=== PATIENT | male | born 1960 | race African-American/Black ===

== ENCOUNTER 2016-08-09 09:59 | Emergency (ER) | payer OTHER ==
[~2016-08-09] VITALS: Ht 170.2 cm; Wt 86.2 kg
[2016-08-09 10:09] VITALS: BP 134/74
[2016-08-09] MEDS ORDERED: CYCL10TA2 PO (11:01)
--- NOTE | 2016-08-09 11:01 | PHYS DOC ---
Past Medical History Past Medical History: No Pertinent History Past Surgical History: Tonsillectomy Alcohol Use: Occasionally Drug Use: None Adult General Chief Complaint Chief Complaint: BACK PAIN OR INJURY [facility] HPI Patient is a 56 year old male presents to the emergency department with a history of right lower back pain that started on Monday. Patient states that he was working on a transmission when he lifted something heavy. He states that he took one of his mother's oxycodone which helped with the pain tremendously. Patient states that he was able to sleep much better last night. Patient denies any numbness or tingling down to his lower extremities. He denies any loss of bowel or bladder. Review of Systems Review of Systems Constitutional: Denies fever or chills [] Eyes: Denies change in visual acuity, redness, or eye pain [] HENT: Denies nasal congestion or sore throat [] Respiratory: Denies cough or shortness of breath [] Cardiovascular: No additional information not addressed in HPI [] GI: Denies abdominal pain, nausea, vomiting, bloody stools or diarrhea [] : Denies dysuria or hematuria [] Musculoskeletal: back pain denies joint pain [] Integument: Denies rash or skin lesions [] Neurologic: Denies headache, focal weakness or sensory changes [] Endocrine: Denies polyuria or polydipsia [] Allergies Allergies Allergies Coded Allergies Type Severity Reaction Last Updated Verified No Known Drug Allergies 05/17/13 No Physical Exam Physical Exam Constitutional: Well developed, well nourished, no acute distress, non-toxic appearance. [] HENT: Normocephalic, atraumatic, bilateral external ears normal, oropharynx moist, no oral exudates, nose normal. [] Eyes: PERRLA, EOMI, conjunctiva normal, no discharge. [] Neck: Normal range of motion, no tenderness, supple, no stridor. [] Cardiovascular:Heart rate regular rhythm, no murmur [] Lungs & Thorax: Bilateral breath sounds clear to auscultation [] Skin: Warm, dry, no erythema, no rash. [] Back: No lumbar spine tenderness. Patient with tenderness noted in the right lower back area Extremities: No tenderness, no cyanosis, no clubbing, ROM intact, no edema. Peripheral pulses 2+ cap refill brisk < 2 seconds. Patient is using cane to assist with ambulation. Neurologic: Alert and oriented X 3, normal motor function, normal sensory function, no focal deficits noted. [] Psychologic: Affect normal, judgement normal, mood normal. [] Current Patient Data Vital Signs Vital Signs Date Time Temp Pulse Resp B/P (MAP) Pulse Ox O2 Delivery O2 Flow Rate FiO2 08/09/16 10:09 98.5 64 16 98 Room Air 98.5 EKG EKG [] Radiology/Procedures Radiology/Procedures [] Course & Med Decision Making Course & Med Decision Making Pertinent Labs and Imaging studies reviewed. (See chart for details) Patient will be discharged home in stable condition. He'll be provided with a prescription for Flexeril which she was instructed will cause drowsiness do not take any be alert and oriented. Recommended ibuprofen 800 mg every 8 hours with food stop taking few develop an upset stomach. Ice packs on 20 minutes off 20 minutes several times a day. Also recommended following up with the primary care physician in the next 7-10 days. Since symptoms to return back to emergency department as been provided. [] Dragon Disclaimer Dragon Disclaimer This electronic medical record was generated, in whole or in part, using a voice recognition dictation system. Departure Departure Impression: Primary Impression: Back pain Disposition: 01 HOME, SELF-CARE Condition: STABLE Referrals: NO PCP (PCP) Patient Instructions: Back Pain, Adult, [id number] Additional Instructions: Activity as tolerated Medication as prescribed Flexeril will cause drowsiness do not take if you need to be alert and oriented Tylenol or Ibuprofen for pain and discomfort Ice packs on 20 minutes and off 20 minutes several times a day Followup with your primary care provider in 7-10 days Return to emergency department as needed for signs and symptoms that become worse. Scripts Cyclobenzaprine Hcl (CYCLOBENZAPRINE HCL) 10 Mg Tablet 10 MG PO TID Y for MUSCLE SPASMS, #30 TAB Prov: ANTWAN SHRESTHA APRN 08/09/16 ANTWAN SHRESTHA APRN Aug 09, 2016 11:01
== END 2016-08-09 11:26 | disposition home or self-care (01) ==
LOC: ER 09:59
DX: M54.5 Low back pain (principal); X50.0XXA Overexertion from strenuous movement or load, initial encounter; Y93.89 Activity, other specified; Y99.8 Other external cause status; Y92.89 Other specified places as the place of occurrence of the external cause
CPT/HCPCS: 99283

== ENCOUNTER 2017-02-14 18:20 | Emergency (ER) | payer OTHER ==
[~2017-02-14] VITALS: Ht 170.2 cm; Wt 78.9 kg
[~2017-02-14 18:20] MED LIST: CYCL10TA2 PO
[2017-02-14] MEDS ORDERED: CEPH-264 PO (18:55)
--- NOTE | 2017-02-14 19:05 | PHYS DOC ---
Past Medical History Past Medical History: No Pertinent History Past Surgical History: Tonsillectomy Alcohol Use: Occasionally Drug Use: None Adult General Chief Complaint Chief Complaint: THUMB HPI HPI Patient is a 57 year old male who presents with left thumb pain. The patient was working on a car approximately 2 months ago when he smashed the thumb originally. The thumb was healing fine and the patient thought he was having no problems when a few days ago it began to develop redness and pain. He is worried that he is developing an infection at the base of the thumbnail. Review of Systems Review of Systems Constitutional: Denies fever or chills [] Respiratory: Denies cough or shortness of breath [] Cardiovascular: No additional information not addressed in HPI [] Musculoskeletal: Denies back pain or joint pain [] Integument: See history of present illness Neurologic: Denies headache, focal weakness or sensory changes [] Endocrine: Denies polyuria or polydipsia [] All other systems were reviewed and found to be within normal limits, except as documented in this note. Allergies Allergies Allergies Coded Allergies Type Severity Reaction Last Updated Verified No Known Drug Allergies 05/17/13 No Physical Exam Physical Exam Constitutional: Well developed, well nourished, no acute distress, non-toxic appearance. [] Cardiovascular:Heart rate regular rhythm, no murmur [] Lungs & Thorax: Bilateral breath sounds clear to auscultation [] Skin: There is erythema to the base of the patient's left thumb with a small amount of drainage present, the bed of the thumb nail is damaged with old blood noted under the nail Extremities: No tenderness, no cyanosis, no clubbing, ROM intact, no edema. [] Neurologic: Alert and oriented X 3, normal motor function, normal sensory function, no focal deficits noted. [] Psychologic: Affect normal, judgement normal, mood normal. [] EKG EKG [] Radiology/Procedures Radiology/Procedures [] Course & Med Decision Making Course & Med Decision Making Pertinent Labs and Imaging studies reviewed. (See chart for details) []1. Infection of nailbed You've been placed on an antibiotic. Please take all of the medication as prescribed. You may cover that with a Band-Aid we are working to keep the area clean and dry. Please follow-up with your primary care physician for further examination of this nailbed and possible removal of the nail itself if it continues to not heal. Dragon Disclaimer Dragon Disclaimer This electronic medical record was generated, in whole or in part, using a voice recognition dictation system. Departure Departure Impression: Primary Impression: Infected nailbed of finger Disposition: 01 HOME, SELF-CARE Condition: STABLE Patient Instructions: Skin Infections, Fingernail or Toenail Loss Additional Instructions: Follow-up with your primary care provider for further evaluation of this nail bed in one week. Please return to the ED sooner if worsening. Please take all medication as prescribed. Scripts Cephalexin (KEFLEX) 500 Mg Capsule 1 CAP PO BID, #20 CAP Prov: ROSEMARIE SOTELO APRN 02/14/17 ROSEMARIE SOTELO APRN Feb 14, 2017 19:05
== END 2017-02-14 19:09 | disposition home or self-care (01) ==
LOC: ER 18:20
DX: L03.012 Cellulitis of left finger (principal)
CPT/HCPCS: 99283

== ENCOUNTER 2017-10-25 09:19 | Emergency (ER) | payer OTHER ==
[~2017-10-25] VITALS: Ht 170.2 cm; Wt 83.9 kg
[~2017-10-25 09:19] MED LIST changes: +CEPH-264 PO
[2017-10-25 09:40] VITALS: BP 134/68
[2017-10-25] MEDS ORDERED: ORPH100T PO (10:07)
[2017-10-25] MEDS ORDERED: NAPR500T8 PO (10:07)
--- NOTE | 2017-10-25 10:07 | PHYS DOC ---
Past Medical History Past Medical History: No Pertinent History Past Surgical History: Other Additional Past Surgical Histo: R ANKLE SX, L ELBOW SX Alcohol Use: Occasionally Drug Use: None Adult General Chief Complaint Chief Complaint: BACK PAIN OR INJURY HPI HPI Patient is a 57 year old female who presents to the emergency room with complaints of low back pain after feeling something pull or pop in his back while working yesterday. Patient states he was pulling something out of an engine when he felt the pull or popping sensation in his low back. Currently he denies any pain at rest. He states that if he moves his pain goes up to an 8 out of 10 on the pain scale. Patient denies any loss of bowel or bladder, radiation of pain into either of his legs, weakness, numbness, or tingling. Patient denies any fall or blunt injury. Review of Systems Review of Systems Constitutional: Denies fever or chills [] GI: Denies abdominal pain : Denies loss of bowel or bladder control, dysuria or hematuria [] Musculoskeletal: Denies or joint pain or tenderness, reports low back pain after feeling a pop yesterday while working [] Neurologic: Denies headache, focal weakness, numbness, or tingling. All other systems were reviewed and found to be within normal limits, except as documented in this note. Allergies Allergies Allergies Coded Allergies Type Severity Reaction Last Updated Verified No Known Drug Allergies 05/17/13 No Physical Exam Physical Exam Constitutional: Well developed, well nourished, no acute distress, non-toxic appearance. [] HENT: Normocephalic, atraumatic, bilateral external ears normal, nose normal. [] Eyes: PERRLA, conjunctiva normal, no discharge. [] Lungs & Thorax: Respirations even and unlabored Skin: Warm, dry, no erythema, no rash. [] Back: No bony tenderness, no CVA tenderness. [] Extremities: No tenderness, no cyanosis, no clubbing, ROM intact, no edema. [] Neurologic: Alert and oriented X 3, normal motor function, normal sensory function, no focal deficits noted. [] Psychologic: Affect normal, judgement normal, mood normal. [] Current Patient Data Vital Signs Vital Signs Date Time Temp Pulse Resp B/P (MAP) Pulse Ox O2 Delivery O2 Flow Rate FiO2 10/25/17 09:28 98.7 62 20 151/77 (101) 97 Room Air 98.7 EKG EKG [] Radiology/Procedures Radiology/Procedures [] Course & Med Decision Making Course & Med Decision Making Pertinent Labs and Imaging studies reviewed. (See chart for details) Patient is a 57-year-old male who presented to the emergency room with complaints of low back pain with movement after feeling a pop yesterday at work. His vital signs are stable. There is no bony tenderness on palpation of his spine. Physical exam and patient history are concerning for a lumbar strain. Discussed x-rays with the patient advised that without any acute injury or fall x-rays are not necessary, patient agrees. Will treat patient with naproxen and orphenadrine. Patient verbalized an understanding of home care, prescriptions, follow-up, and return to ED instructions without any further questions or concerns. He relates with a steady gait. [] Dragon Disclaimer Dragon Disclaimer This electronic medical record was generated, in whole or in part, using a voice recognition dictation system. Departure Departure Impression: Primary Impression: Low back pain Additional Impression: Low back strain Disposition: 01 HOME, SELF-CARE Condition: STABLE Referrals: NO PCP (PCP) Patient Instructions: Back Pain, Adult, [id number] Additional Instructions: Fill the prescriptions and use them as directed. He may apply ice or heat to the sore areas for comfort. Off work for the next 1-2 days, activity as tolerated. Follow-up with work comp doc in the next 1-2 days. Return to the emergency room if your symptoms worsen. Scripts Orphenadrine Citrate (ORPHENADRINE CITRATE) 100 Mg Tablet.er 1 TAB PO BID PRN for PAIN for 7 Days, #14 TAB 0 Refills Prov: BREN JUNE RATINGS ANALYST 10/25/17 Naproxen (NAPROXEN) 500 Mg Tablet.dr 1 TAB PO BID for 10 Days, #20 TAB 0 Refills Prov: BREN JUNE RATINGS ANALYST 10/25/17 Problem Qualifiers Primary Impression: Low back pain Chronicity: acute Back pain laterality: unspecified Sciatica presence: without sciatica Qualified Codes: M54.5 - Low back pain Additional Impression: Low back strain Encounter type: initial encounter Qualified Codes: S39.012A - Strain of muscle, fascia and tendon of lower back, initial encounter BREN JUNE RATINGS ANALYST Oct 25, 2017 10:07
== END 2017-10-25 10:12 | disposition home or self-care (01) ==
LOC: ER 09:19
DX: S39.012A Strain of muscle, fascia and tendon of lower back, initial encounter (principal); X50.0XXA Overexertion from strenuous movement or load, initial encounter; X50.9XXA Other and unspecified overexertion or strenuous movements or postures, initial encounter; Y93.89 Activity, other specified; Y92.69 Other specified industrial and construction area as the place of occurrence of the external cause; Y99.0 Civilian activity done for income or pay
CPT/HCPCS: 99283

== ENCOUNTER 2018-10-31 19:56 | Emergency (ER) | payer OTHER ==
[~2018-10-31] VITALS: Ht 170.2 cm; Wt 83.9 kg
[~2018-10-31 19:56] MED LIST changes: +NAPR500T8 PO; +ORPH100T PO
[2018-10-31 20:06] VITALS: BP 160/96
[2018-10-31] MEDS ORDERED: CYCL10TA2 PO (21:17)
[2018-10-31] MEDS ORDERED: IBUP-1060 PO (21:17)
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
== END 2018-10-31 21:32 | disposition home or self-care (01) ==
LOC: ER 19:56
DX: S39.012A Strain of muscle, fascia and tendon of lower back, initial encounter (principal); E78.00 Pure hypercholesterolemia, unspecified; K21.9 Gastro-esophageal reflux disease without esophagitis; I10 Essential (primary) hypertension; V49.9XXA Car occupant (driver) (passenger) injured in unspecified traffic accident, initial encounter; Y93.89 Activity, other specified; Y92.488 Other paved roadways as the place of occurrence of the external cause; Y99.8 Other external cause status
CPT/HCPCS: 72100; 99284